=== PATIENT | female | born 1995 | race Caucasian/White ===

== ENCOUNTER 2016-11-19 19:18 | Emergency (ER) | payer OTHER ==
[~2016-11-19] VITALS: Ht 147.3 cm; Wt 48.1 kg
[~2016-11-19 19:18] MED LIST: MOTRIN800 M1 PO; PRENATAL VITAMI1 T10 PO
[2016-11-19 19:33] VITALS: BP 114/69
--- NOTE | 2016-11-19 19:45 | NUR ---
TO ER BED 5
--- NOTE | 2016-11-19 19:50 | NUR ---
21 Y/O HERE W/C/O HEADACHES, BODY ACHES,STIFT NECK, FEVER, CHILLS, NAUSEA X 3 DAYS AND VOMITTING X 1. PT DENIES ANY RASH PRESENT AT THE MOMENT OR WITHIN THE LAST 3 DAYS.NO S/S OF DISTRESS NOTED AT THE MOMENT ER MD AWARED.
[2016-11-19] MEDS ORDERED: KETOROLAC 30 MG/ML VIAL IM ONE (20:20)
[2016-11-19] MEDS ORDERED: IBUPROFEN 400 MG TAB PO ONE (20:25)
[2016-11-19] MEDS ORDERED: ACETAMINOPHEN EXTRA STRENGTH 500 MG TAB PO ONE (20:25)
--- NOTE | 2016-11-19 20:35 | NUR ---
PT RESTING IN BED, IN MONITOR. NO S/S OF DISTRESS NOTED AT THIS TIME. WILL CONT TO MONITOR.
[2016-11-19 21:38] VITALS: BP 100/62
--- NOTE | 2016-11-19 21:38 | NUR ---
Patient discharged with v/s stable. Written and verbal after care instructions given and explained. Patient alert, oriented and verbalized understanding of instructions. Ambulatory with steady gait. All questions addressed prior to discharge. ID band removed. Patient advised to follow up with PMD IN 2 DAYS OR RETURN TO ER IF CONDITION GETS WORSE. Rx of TYLENOL WITH CODEINE, AND NAPROSYN given. Patient educated on indication of medication including possible reaction and side effects. Opportunity to ask questions provided and answered.
== END 2016-11-19 21:38 | disposition home or self-care (01) ==
LOC: MED 19:18
DX: B34.9 Viral infection, unspecified (principal); R50.9 Fever, unspecified; Z32.02 Encounter for pregnancy test, result negative